=== PATIENT | female | born 1990 | race Asian ===

== ENCOUNTER 2017-10-23 00:10 | Emergency (ER) | payer OTHER ==
[~2017-10-23] VITALS: Ht 160 cm; Wt 59.0 kg
[2017-10-23 00:20] VITALS: Ht 160 cm; Wt 59.0 kg
[2017-10-23 01:51] VITALS: BP 128/85
== END 2017-10-23 01:45 | disposition home or self-care (01) ==
LOC: ED 00:10
DX: J03.90 Acute tonsillitis, unspecified (principal)
CPT/HCPCS: J0561; J1100